=== PATIENT | female | born 1985 | race Caucasian/White ===

== ENCOUNTER 2022-06-27 15:07 | Emergency (ER) | payer BC, OTHER | END 2022-06-27 16:42 | disposition home or self-care (01) | LOC: CSHERS 15:07 | DX: B02.9 Zoster without complications (principal); E20.9 Hypoparathyroidism, unspecified; I10 Essential (primary) hypertension; F17.290 Nicotine dependence, other tobacco product, uncomplicated | CPT/HCPCS: 99283 ==